=== PATIENT | male | born 1980 ===

== ENCOUNTER 2021-09-11 01:05 | Emergency (ER) | payer SELFPAY ==
[2021-09-11] MEDS ORDERED: Ketorolac Tromethamine 30 MG/ML VIAL ONE (01:21)
[2021-09-11 01:57] LABS: Bilirubin Negative (Negative); Blood, Urine Moderate (Negative); Clarity Clear (Clear); Glucose, Urine (Dipstick) Negative (Negative); Ketone, Urine Negative (Negative); Leukocyte Negative (Negative); Nitrite Negative (Negative); Protein, Urine (Dipstick) 30 mg/dL (Neg-Trace); Specific Gravity, Urine Greater/Equal 1.030 (1.005-1.030)
[2021-09-11 02:13] LABS: Squamous Epithelial None Seen HPF (0-3); WBC/HPF None Seen HPF (0-3)
[2021-09-11 02:14] LABS: Sperm/HPF Rare HPF (None Seen)
[2021-09-11] MEDS ORDERED: Dicyclomine 20 MG TAB ONE (02:34)
[2021-09-11] MEDS ORDERED: traMADol HCl 50 MG TAB ONE (03:03)
== END 2021-09-11 03:16 | disposition home or self-care (01) ==
LOC: BURERS 01:05
DX: N23 Unspecified renal colic (principal); N13.30 Unspecified hydronephrosis; E11.9 Type 2 diabetes mellitus without complications
CPT/HCPCS: 74176; 81003; 81015; 96372; J1885